=== PATIENT | male | born 1950 | race Caucasian/White ===

== ENCOUNTER → 2024-10-24 20:28 | Outpatient (REF) | payer MEDICARE, OTHER, SELFPAY | LOC: MRI 20:28 | PROVIDERS: ATTENDING PHYSICIAN Physical Medicine & Rehabilitation; FAMILY PHYSICIAN Family Medicine | DX: M48.062 Spinal stenosis, lumbar region with neurogenic claudication (principal) | CPT/HCPCS: 72148 ==